=== PATIENT | female | born 1950 | race Caucasian/White ===

== ENCOUNTER → 2017-09-06 07:55 | Outpatient (CLI) | payer OTHER, SELFPAY ==
--- NOTE | 2017-09-06 | DI.US.S_ITS ---
PROCEDURE: US ABDOMEN COMPLETE INDICATIONS: EPIGASTRIC PAIN TECHNIQUE: Real-time scanning was performed of the abdominal and retroperitoneal organs, with image documentation. COMPARISON: None. FINDINGS: Liver: Liver is normal in size and homogeneous in echotexture. Gallbladder: No gallstones identified. Normal gallbladder wall. No pericholecystic fluid. Negative sonographic Bonilla sign. Biliary ducts: Intrahepatic bile ducts are non-dilated. Extrahepatic bile duct caliber measures 5.0 mm. Normal is 6-7 mm or less in diameter, or 10 mm or less post-cholecystectomy. Pancreas: Visualized portions of the pancreas are sonographically normal. Spleen: Spleen is normal in size and homogeneous in echotexture. Kidneys: Kidneys are normal in size and echotexture. Right kidney measures 9.6 cm long; left kidney measures 9.5 cm long. No hydronephrosis or nephrolithiasis. No solid masses. Aorta: Visualized aorta is normal in caliber at less than 3 cm. Iliacs: Proximal common iliac arteries are normal in caliber at less than 2.5 cm. IVC: Intrahepatic inferior vena cava is patent. Miscellaneous: No free abdominal fluid. IMPRESSION: No source for mid epigastric pain identified. Dictated by: Gutierrez GREGORY Interpreted: Vicky Sin MD on 09/06/2017 at 12:42 Approved by: Vicky Sin M.D. on 09/06/2017 at 15:05
== END ==
PROVIDERS: Family Provider Nurse Practitioner Family; PCP Nurse Practitioner Family; Visit Provider Nurse Practitioner Family
DX: R10.13 Epigastric pain (principal)
CPT/HCPCS: 76700

== ENCOUNTER 2018-03-30 12:22 | Day surgery (SDC) | payer OTHER, SELFPAY ==
[2018-03-30] VITALS (7 sets, daily range): BP systolic 101–114; BP diastolic 51–75; PULSE 61–91; RESP 10–16; TEMP 36.1–36.4; O2SAT 94–97; BMI 18.3
--- NOTE | 2018-03-30 | PATH_ITS ---
[facility] Accession Number: [id number] . 01 Material submitted: . LEFT COLON POLYP AT 40CM . 02 Diagnosis: Left Colon, Polyp at 40 cm, Biopsy: Sessile serrated adenoma. V/03/31/2018 . 02 Electronically signed: . Tracey Gonsalves MD, Pathologist NPI- [id number] . 01 Gross description: . Received in one formalin-filled container, labeled with the patient's name and labeled left colon polyp at 40 cm, are two 0.2-0.5 cm portions of tissue, entirely submitted in one cassette. ([id number]) /FRR . 02 Pathologist provided ICD-10: D12.6 . 02 CPT . 052173 Performed at: 01 [facility] [address] [id number] MD Isidro Riley MD Phone: [phone] Performed at: 02 [facility] [place] [address] [place] [id number] MD Tracey Gonsalves MD Phone: [phone]
[2018-03-30] MEDS: SODIUM CHLORIDE 0.9% 1,000 ML 200 ML IV (13:11)
--- NOTE | 2018-03-30 13:54 | PM.HP.1 ---
History of Present Illness Date Patient Seen: 03/30/18 Time Patient Seen: 13:54 Chief complaint: [id number] SCREENING COLONOSCOPY Narrative: 68-year-old female who presents for colorectal screening. Last examination was 10 years ago. She reports the study was normal at that time. She has no new gastrointestinal symptoms today. No abdominal pain or change in bowel habits. No blood per rectum. Patient History Medical History Insomnia (Acute) Surgical History History of colonoscopy (Acute) Social History household members: spouse Family & Social History Social History: household members spouse Meds Home Medications Medication Instructions Recorded Confirmed Type trazodone 50 mg PO HS PRN 03/30/18 History Allergies Allergy/AdvReac Type Severity Reaction Status Date / Time No Known Drug Allergies Allergy Verified 03/30/18 12:51 Review of Systems Review of Systems All systems reviewed & are unremarkable except as noted in HPI and below Exam Vital Signs (past 8 hours): - 03/30/18 13:04 Temperature 97.6 F Pulse Rate 91 H Respiratory Rate 15 Blood Pressure 108/75 Pulse Oximetry 94 Oxygen Delivery Method Room Air Narrative Exam Narrative: Thin female lying comfortably in bed in no acute distress. Alert oriented x3 Sclera nonicteric Regular rate rhythm Abdomen soft and nondistended Extremities show no clubbing or cyanosis Objective Labs Labs: No laboratory or radiographic studies for review Assessment & Plan Assessment & Plan narrative: 68-year-old female requiring colorectal screening. Her last examination was 10 years ago. Colonoscopy is currently recommended. Technical details of the procedure were discussed. Risks, benefits, alternatives were explained. Risks including but not limited to sedation, aspiration, bleeding, pain, missed lesion, incomplete examination, need for further radiographic studies, colonic perforation, need for major abdominal surgery, and all attendant risks of major surgery were discussed in detail. Consent was placed on the chart after all of her questions were answered to her satisfaction, and she voiced understanding. We will proceed as above.
--- NOTE | 2018-03-30 13:59 | PM.PREOP ---
Pre-operative Note Interval Note History & Physical reviewed/Exam performed by Physician: Yes Changes to H&P: No H&P completed within 30 days and has changed as indicated here:: Patient seen and examined today. History and physical examination placed on the chart. Obviously, no changes in the last 15 min. We will proceed with colonoscopy today as planned. ASA Class (for procedural sedation): I
[2018-03-30] MEDS: ONDANSETRON 4 MG/2 ML INJ IV (14:32)
[2018-03-30] MEDS: fentaNYL 250 MCG/5 ML INJ IV (14:33)
[2018-03-30] MEDS: MIDAZOLAM 5 MG/5 ML VIAL IV (14:33)
--- NOTE | 2018-03-30 14:41 | PM.OP.ENDO ---
Operative Date/Time/Diagnoses Date of procedure: 03/30/18 Time of procedure: 14:41 Pre-op diagnosis: Colorectal screening Post-op diagnosis: other (Colon polyp) Procedure & Clinicians Study performed: 1. Sedation per surgeon 2. Colonoscopy with cold forceps polypectomy Same procedure as scheduled: Yes Indications: 68-year-old female who presents for colorectal screening. Last examination was 10 years ago. She is recommended undergo colonoscopy once again. Surgeon: Zac Feldman Procedure Notes SCOAP/Timeout: Yes Procedure in detail: After obtaining informed consent, the patient was brought to the GI suite and placed in the left lateral decubitus position on the examination table. After placement of appropriate monitors, the patient was given incremental doses of Versed and Fentanyl until an appropriate level of sedation was achieved. A time out was held per SCOAP protocol. A digital rectal examination was performed and did not reveal any masses or obstructing lesions. The colonoscope was gently passed into the patient's anus and the entire colon navigated to the level of the cecum with some difficulty. Her colon was quite tortuous and redundant and required multiple repositioning maneuvers as well as abdominal pressure and the endoscopic stiffening device in order to achieve the cecum. Once in the cecum, the scope was withdrawn being sure to go before and beyond all mucosal folds and prominences and get an excellent examination. The findings are noted above. At the level of the rectal vault, the scope was retroflexed and the internal anal canal was examined. The scope was straightened and air aspirated from the colon. The instrument was removed from the patient's body and the procedure was concluded. The patient was allowed to awaken from sedation without difficulty and taken to the post-anesthesia care unit in good condition. Scope withdrawal time: 8:55 min Sedation minutes: 39 Findings: polyp and other findings (Otherwise normal colon and rectum) Specimen(s): other (Left colon polyp at 40 cm) Complications: none Recommendations: Colonscopy in 5 years, High fiber diet and Will call with biopsy results Plan for aftercare: 1. Discharge home Follow up: as needed Disposition: PACU
== END 2018-03-30 15:46 | disposition home or self-care (01) ==
PROVIDERS: PCP Nurse Practitioner Family; Visit Provider Surgery
PROC: 0DJD8ZZ Inspection of Lower Intestinal Tract, Via Natural or Artificial Opening Endoscopic (ICD-10-PCS; CPT 45378; principal; 2018-03-30 14:00)
DX: Z12.11 Encounter for screening for malignant neoplasm of colon (principal); D12.6 Benign neoplasm of colon, unspecified
CPT/HCPCS: 45380; 99152; 99153; J2250; J2405; J3010

== ENCOUNTER → 2018-04-05 07:53 | Outpatient (CLI) | payer OTHER, SELFPAY ==
--- NOTE | 2018-04-05 | DI.MG.S_ITS ---
BILATERAL DIGITAL SCREENING MAMMOGRAM 3D/2D WITH CAD: 04/05/2018 CLINICAL: Routine screening. Comparison is made to exams dated: 05/03/2016 mammogram, 04/23/2015 mammogram, and 03/28/2013 mammogram - [facility]. The tissue of both breasts is predominantly fatty. Current study was also evaluated with a Computer Aided Detection (CAD) system. No significant masses, calcifications, or other findings are seen in either breast. There has been no significant interval change. IMPRESSION: NEGATIVE There is no mammographic evidence of malignancy. A 1 year screening mammogram is recommended. This exam was interpreted at Station ID: [id number]. NOTE: For mammograms, a report in lay terms will be sent to the patient. Approximately 15% of breast malignancies will not be visualized mammographically. In the management of a palpable breast mass, a negative mammogram must not discourage biopsy of a clinically suspicious lesion. Electronically Signed By: Katy lyons/gilmar:04/05/2018 09:00:38 letter sent: Normal Exam ACR BI-RADS Category 1: Negative 3341F
--- NOTE | 2018-04-05 | DI.RAD.S_ITS ---
PROCEDURE: XR LUMBAR SPINE 2-3V INDICATIONS: BACK PAIN TECHNIQUE: 3 views of the lumbar spine were acquired. COMPARISON: None. FINDINGS: Bones: 5 [id number] vertebrae are present. There is abnormal bony alignment, with mild grade 1 anterolisthesis of L5 on S1 associated with presence of moderately severe facet osteoarthritis at this level and mild disc height reduction. No vertebral body compression fractures. No suspicious bony lesions. Soft tissues: Overlying bowel gas pattern is normal. No suspicious soft tissue calcifications. IMPRESSION: Mild grade 1 anterolisthesis of L5 on S1 associated with mild degenerative disc disease at this level and ligamentous laxity secondary to moderately severe facet osteoarthritis at L5-S1. It may be warranted to obtain oblique views to determine whether pars interarticularis defects are present associated with this current set of findings. Dictated by: Piotr Garrido M.D. on 04/05/2018 at 10:00 Approved by: Piotr Garrido M.D. on 04/05/2018 at 10:01
== END ==
PROVIDERS: PCP Nurse Practitioner Family; Visit Provider Nurse Practitioner Family
DX: Z12.31 Encounter for screening mammogram for malignant neoplasm of breast (principal); M54.5 Low back pain; M81.0 Age-related osteoporosis without current pathological fracture; M47.817 Spondylosis without myelopathy or radiculopathy, lumbosacral region; M43.17 Spondylolisthesis, lumbosacral region; M51.37 Other intervertebral disc degeneration, lumbosacral region; G89.29 Other chronic pain
CPT/HCPCS: 72100; 77063; 77067

== ENCOUNTER → 2018-08-11 12:48 | Outpatient (CLI) | payer OTHER, SELFPAY | PROVIDERS: PCP Nurse Practitioner Family; Visit Provider Nurse Practitioner Family | DX: M81.0 Age-related osteoporosis without current pathological fracture (principal); Z78.0 Asymptomatic menopausal state | CPT/HCPCS: 77080 ==

== ENCOUNTER → 2020-08-06 13:54 | Outpatient (CLI) | payer MEDICARE, SELFPAY | PROVIDERS: Visit Provider Physician Assistant | DX: N39.0 Urinary tract infection, site not specified (principal) | CPT/HCPCS: 87086 ==

== ENCOUNTER → 2020-10-28 13:50 | Outpatient (CLI) | payer MEDICARE, SELFPAY ==
[2020-10-28 14:22] LABS: COVID19 -Nasal RAPID Negative (Negative)
== END ==
PROVIDERS: PCP Family Medicine; Visit Provider Nurse Practitioner Family
DX: Z20.822 Contact with and (suspected) exposure to COVID-19 (principal)
CPT/HCPCS: 87635

== ENCOUNTER 2020-10-29 12:23 | Day surgery (SDC) | payer MEDICARE, SELFPAY ==
--- NOTE | 2020-10-29 08:02 | PM.PREOP ---
Pre-operative Note COVID-19 COVID-19 status: Negative Interval Note History & Physical reviewed/Exam performed by Physician: Yes Changes to H&P: No
--- NOTE | 2020-10-29 08:03 | PM.OP.1 ---
Operative Date/Time/Diagnoses Date of procedure: 10/29/20 Time of procedure: 13:15 Procedure & Clinicians Procedure: Preoperative diagnoses: 1. Complex Right significantnuclear sclerotic and cortical cataract. 2. Osteoporosis 3. Migraines 4. Mild epiretinal membrane. Postoperative diagnoses: 1. Complex Right Cataract removed by phacoemulsification with placement of posterior chamber intraocular lens and use of capsular dye. Procedure: ComplexPhacoemulsification with posterior chamber intraocular lens implant Surgeon: Yuli Calderon MD Complications: None Specimen: None Implant: DIBOO+26.5 Blood loss: None Anesthesia: Retrobulbar with monitored standby Description of procedure: Patient presents with a complaint of decreased vision due to cataract which is affecting activities of daily living at reading and distance. She lives on [facility] in needs to be independent and wants to see better. The patient wants surgery to improve vision. She understands the extra risk of surgery during the COVID-19 epidemic and wishes to proceed. She has a high hyperopia. She has tested negative for active COVID-19 virus within 72 hours of the procedure. Her epi retinal membrane is not visually significant and is felt best to proceed with cataract only surgery in this eye. The patient was taken to the operating room and given IV sedation. A retrobulbar block consisting of 6 cc of 2% xylocaine without epinephrine mixed half and half with 0.5% Marcaine with 1 cc of hyaluronidase added is placed between the medial and lateral 1/3 of the inferior orbital rim. The eye is manually massaged for 30 sec, prepped using Betadine solution, and draped in the usual sterile fashion. She has a very deep-set eye with prominent brow and positioning was placed to maximize exposure. Temporal approach was made, a 1 mm side-port incision was made 90? from the proposed clear corneal incision position. Phenylephrine 1.5% mixed with 1% xylocaine 0.2 cc was placed into the anterior chamber. The lid speculum was repositioned several times trying to improve exposure. The eye was so deep set the speculum was unable to be placed under both lids fully. An air bubble was placed followed by Visudyne capsular dye to improve visibility. The excess dye and air was then removed with BSS. Endo coat followed by Healon was then placed. A 2.6 mm clear incision with a 2.6 mm blade was placed. A 360 degree capsulorrhexis style capsulotomy was then performed with a cystitome needle on a Healon. Hydrodelineation and hydrodissection were performed. The phacoemulsification unit is introduced, and sculpting notice used to groove the central lens. It is then removed in chopping mode. Epi nucleus is removed with epinuclear mode and irrigation aspiration was used to remove the peripheral cortex. The posterior capsule is polished. The intraocular lens is selected, inspected, power confirmed, and placed in the posterior chamber. Extra viscoelastic had been used throughout the case due the difficult positioning and visibility and this was extensively irrigated. The wound was stromally hydrated and tested for leaks, there was none and it was left sutureless. Vigamox 0.1 cc was placed into the anterior chamber. Kenalog 0.2 cc was placed in the superior subconjunctival space. A drop of antibiotic and was placed and the eye was patched and shielded. The patient was stable and returned to the recovery room in excellent condition. Dictated by: Yuli Calderon MD Copy to: [facility] Same procedure as scheduled: Yes
[2020-10-29] MEDS: PROPARACAINE 0.5% OPHTH SOL 2 DROPS EYE-OP (12:58)
[2020-10-29] MEDS: CATARACT EYE COMPOUND (10 DROPS/SYRINGE) 3 DROPS EYE-OP (13:03)
[2020-10-29 13:05] VITALS: BMI 20.5
[2020-10-29 13:13] VITALS: BP 138/79; PULSE 69; RESP 16; TEMP 36.3; O2SAT 98
--- NOTE | 2020-10-29 14:37 | SUR.OPER ---
Supine on eye stretcher, head on extension cradle and foam donut then secured with tape. Arms tucked at sides with blanket. Pillow under knees.
[2020-10-29] MEDS: ERYTHROMYCIN OPHTH 1 GM OINT 1 APPLIC EYE-LEFT (14:40)
[2020-10-29] MEDS: BALANCED SALT IRRIG SOLN NO.2 500 ML, EPINEPHrine 1 MG IRR (14:41)
[2020-10-29] MEDS: TRYPAN BLUE 0.5 ML SYRINGE INJ (14:41)
[2020-10-29] MEDS: TRIAMCINOLONE 50 MG/5 ML VIAL INJ (14:41)
[2020-10-29] MEDS: LIDOCAINE 2% 4 ML, BUPIVACAINE 0.5% (PF) 4 ML, HYALURONIDASE 150 UNIT INJ (14:42)
[2020-10-29] MEDS: HYALURONATE SODIUM 30 MG-10 MG/ML SYRINGES 1 BOX INTRAOCULA (14:43)
[2020-10-29] MEDS: MOXIFLOXACIN INJ 4 MG/0.8 ML VIAL 0.5 MG EYE-OP (14:43)
[2020-10-29] MEDS: PHENYLEPHRINE/LIDOCAINE VIAL (OR) 0.2 ML EYE-OP (14:46)
[2020-10-29 15:28] VITALS: BP 140/77; PULSE 63; RESP 16; TEMP 36.4; O2SAT 97
--- NOTE | 2020-10-29 16:16 | SUR.PHASEII ---
Pt left when ready and left in stable condition.
== END 2020-10-29 15:50 | disposition home or self-care (01) ==
LOC: OR 12:24
PROVIDERS: PCP Family Medicine; Referring Provider Ophthalmology; Visit Provider Ophthalmology
PROC: (CPT 66984; principal; 2020-10-29 13:15)
DX: H25.811 Combined forms of age-related cataract, right eye (principal); H35.373 Puckering of macula, bilateral; M81.0 Age-related osteoporosis without current pathological fracture
CPT/HCPCS: 66984; J0171; J2704; J3301; J3470

== ENCOUNTER → 2021-03-30 10:56 | Outpatient (CLI) | payer MEDICARE, SELFPAY ==
[2021-03-30 12:09] LABS: COVID19 -Nasal RAPID Negative (Negative)
== END ==
PROVIDERS: PCP Family Medicine; Visit Provider Family Medicine Sleep Medicine
DX: Z20.822 Contact with and (suspected) exposure to COVID-19 (principal)
CPT/HCPCS: 87635; C9803

== ENCOUNTER 2021-03-31 10:52 | Day surgery (SDC) | payer MEDICARE, SELFPAY ==
[2021-03-31] MEDS: PROPARACAINE 0.5% OPHTH SOL 2 DROPS EYE-OP (11:05)
[2021-03-31] MEDS: CATARACT EYE COMPOUND (10 DROPS/SYRINGE) 3 DROPS EYE-OP (11:05)
[2021-03-31 11:17] VITALS: BP 119/73; PULSE 99; RESP 16; TEMP 36.6; O2SAT 98; BMI 20.5
[2021-03-31] MEDS: LACTATED RINGERS 1,000 ML 84 ML IV (11:46)
--- NOTE | 2021-03-31 11:59 | P.OP.PRE_ITS ---
Pre-operative Note Interval Note History & Physical reviewed/Exam performed by Physician: Yes Changes to H&P: No Addendum Addendum Note: There are no non surgical alternatives to the patient's condition. Deteriora tion of the patient's condition is expected. Delay may result in more complex future surgery
--- NOTE | 2021-03-31 12:00 | PM.OP.1 ---
Operative Date/Time/Diagnoses Pre-op diagnosis: Nuclear Cataract Left eye Post-op diagnosis: same Procedure & Clinicians Same procedure as scheduled: Yes Surgeon: Neel Shepherd Anesthesia Type: MAC +/- and Sedation Operative Notes Procedure in detail: Patient brought to the operating suite. Tetracaine drops placed in the left eye. Patient was prepped and draped in sterile manner. Wire lid speculum was placed in the eye. Betadine drops were placed on the eye. This was irrigated. Lidocaine jelly was placed on the eye. There was zonnular dehiscence at 12:00 A paracentesis port was created with a side-port blade. 0.1 mL 1% preservative free lidocaine was injected into the anterior chamber. The anterior chamber was deepened with viscoelastic. 2.6 mm keratome was used to create a temporal clear corneal incision. Cystotome and Utrata forceps were used to create continuous tear capsulorrhexis. Balanced salt solution was used to hydro dissect the nucleus. The phacoemulsification handpiece was inserted and the nucleus was removed using the stop and chop technique. The chamber was quite shallow. The irrigation aspiration handpiece was inserted and the remaining cortex was removed. Anterior chamber was deepened with viscoelastic. An Blas DIB00 intraocular lens with a power of 27.0 was injected into the capsular bag. Irrigation aspiration handpiece was inserted and the remaining viscoelastic was removed. Some vitreous presented at the site of zonnular dehiscence. It it did not go to the incisions. Incision was hydrated with balanced salt solution and found to be leak free with pressure with Weck-Court sponges. 0.1 mL Vigamox injected anterior chamber. 0.3 mL Kenalog 10 mg was injected subconjunctivally. Lid speculum was removed. The patient left the operating room in excellent condition. Complications: none Post-operative Condition: stable Disposition: same day surgery
[2021-03-31] MEDS: HYALURONATE SODIUM 30 MG-10 MG/ML SYRINGES 1 BOX INTRAOCULA (12:21)
[2021-03-31] MEDS: TRIAMCINOLONE 50 MG/5 ML VIAL INJ (12:22)
[2021-03-31] MEDS: LIDOCAINE 2% (GLYDO) 6 ML GEL TOP (12:22)
[2021-03-31] MEDS: PHENYLEPHRINE/LIDOCAINE VIAL (OR) 0.2 ML EYE-OP (12:22)
[2021-03-31] MEDS: TETRACAINE 0.5% OPHTH DROPS 4 ML 2 DROPS EYE-OP (12:22)
[2021-03-31] MEDS: BALANCED SALT IRRIG SOLN NO.2 500 ML, EPINEPHrine 1 MG IRR (12:22)
[2021-03-31] MEDS: MOXIFLOXACIN INJ 4 MG/0.8 ML VIAL 0.5 MG EYE-OP (12:22)
[2021-03-31] MEDS: TIMOLOL 0.5% OPHTH 2 DROPS EYE-LEFT (12:35)
[2021-03-31 12:40] VITALS: BP 102/61; PULSE 64; RESP 16; TEMP 36.8; O2SAT 96
== END 2021-03-31 13:00 | disposition home or self-care (01) ==
LOC: OR 10:53
PROVIDERS: PCP Family Medicine; Referring Provider Ophthalmology; Visit Provider Ophthalmology
PROC: (CPT 66984; principal; 2021-03-31 12:45)
DX: H25.12 Age-related nuclear cataract, left eye (principal)
CPT/HCPCS: 66984; J0171; J2250; J3010; J3301

== ENCOUNTER → 2021-05-07 07:26 | Outpatient (CLI) | payer MEDICARE, SELFPAY ==
--- NOTE | 2021-05-07 | DI.MG.S_ITS ---
BILATERAL DIGITAL SCREENING MAMMOGRAM 3D/2D WITH CAD: 05/07/2021 CLINICAL: Routine screening. Comparison is made to exams dated: 04/05/2018 mammogram, 05/03/2016 mammogram, 04/23/2015 mammogram, and 04/24/2013 mammogram - [facility]. There are scattered fibroglandular elements in both breasts. Current study was also evaluated with a Computer Aided Detection (CAD) system. No significant masses, calcifications, or other findings are seen in either breast. There has been no significant interval change. IMPRESSION: NEGATIVE There is no mammographic evidence of malignancy. A 1 year screening mammogram is recommended. This exam was interpreted at Station ID: [id number]. NOTE: For mammograms, a report in lay terms will be sent to the patient. Approximately 15% of breast malignancies will not be visualized mammographically. In the management of a palpable breast mass, a negative mammogram must not discourage biopsy of a clinically suspicious lesion. Electronically Signed By: Charlie stevenson/gilmar:05/07/2021 09:28:21 letter sent: Normal Exam ACR BI-RADS Category 1: Negative 3341F
== END ==
PROVIDERS: PCP Family Medicine; Referring Provider Family Medicine; Visit Provider Family Medicine
DX: Z12.31 Encounter for screening mammogram for malignant neoplasm of breast (principal)
CPT/HCPCS: 77063; 77067

== ENCOUNTER → 2023-04-05 09:12 | Outpatient (CLI) | payer MEDICARE, SELFPAY ==
--- NOTE | 2023-04-05 09:14 | DI.MG.S_ITS ---
BILATERAL DIGITAL SCREENING MAMMOGRAM 3D/2D WITH CAD: 04/05/2023 CLINICAL: Routine screening. Comparison is made to exams dated: 05/07/2021 mammogram, 04/05/2018 mammogram, and 05/03/2016 mammogram - [facility]. There are scattered areas of fibroglandular density in both breasts (category b / 25%-50% glandular tissue). Current study was also evaluated with a Computer Aided Detection (CAD) system. No significant masses, calcifications, or other findings are seen in either breast. There has been no significant interval change. IMPRESSION: NEGATIVE There is no mammographic evidence of malignancy. A 1 year screening mammogram is recommended. Based on the Tyrer Cuzick model (a risk assessment model) the patient's lifetime risk is 3.6% and her 10 year risk is 3.0%. According to the ACR, ACS, and NCCN guidelines, an annual breast MRI exam along with mammogram is recommended if the patient's lifetime risk is 20% or greater. This exam was interpreted at Station ID: [id number]. NOTE: For mammograms, a report in lay terms will be sent to the patient. Approximately 15% of breast malignancies will not be visualized mammographically. In the management of a palpable breast mass, a negative mammogram must not discourage biopsy of a clinically suspicious lesion. Electronically Signed By: Chantelle nunez/gilmar:04/05/2023 16:32:15 letter sent: Normal Exam ACR BI-RADS Category 1: Negative 3341F
--- NOTE | 2023-04-05 09:14 | DI.RAD.S_ITS ---
Bone Density Report Name: YASMEEN MAURO Age: 73 Sex: Female Ethnicity: White Date of : 1950 Indication: postmenopausal osteoporosis; Referring Provider: SACHI SANCHEZ Study: Bone densitometry was performed. Exam Date: April 05, 2023 Accession number: [id number] Bone Density: Region BMD T-score Z-score Classification AP Spine(L1-L4) 0.508 -4.9 -2.6 Osteoporosis Femoral Neck (Left) 0.418 -3.9 -1.9 Osteoporosis Total Hip (Left) 0.531 -3.4 -1.7 Osteoporosis Femoral Neck (Right) 0.416 -3.9 -1.9 Osteoporosis Total Hip (Right) 0.528 -3.4 -1.7 Osteoporosis Total Hip Mean 0.529 -3.4 -1.7 Osteoporosis World Health Organization criteria for BMD impression classify patients as: Normal (T-score at or above -1.0), Osteopenia (T-score between -1.0 and -2.5), or Osteoporosis (T-score at or below -2.5). 10-year Fracture Risk: FRAX not reported because: Some T-score for Spine Total or Hip Total or Femoral Neck at or below -2.5 Previous Exams: -- Region Exam Age BMD T-score BMD Change BMD Change Date g/cm2 vs Baseline vs Previous -- AP Spine (L1-L4) 04/05/2023 73 0.508 -4.9 -0.094 (-15.5%)# -0.020 (-3.9%)# 08/11/2018 68 0.529 -4.7 -0.073 (-12.2%)* -0.024 (-4.3%)* 05/03/2016 66 0.553 -4.5 -0.049 (-8.2%)* -0.049 (-8.2%)* 03/28/2013 63 0.602 -4.0 Total Hip(Left) 04/05/2023 73 0.531 -3.4 -0.070 (-11.7%)# 0.015 (2.9%)# 08/11/2018 68 0.516 -3.5 -0.085 (-14.2%)* -0.025 (-4.6%) 05/03/2016 66 0.541 -3.3 -0.060 (-10.0%)* -0.060 (-10.0%)* 03/28/2013 63 0.601 -2.8 Total Hip(Right) 04/05/2023 73 0.528 -3.4 -0.050 (-8.6%)# 0.040 (8.2%)# 08/11/2018 68 0.488 -3.7 -0.090 (-15.6%)* -0.076 (-13.5%)* 05/03/2016 66 0.564 -3.1 -0.014 (-2.4%) -0.014 (-2.4%) 03/28/2013 63 0.578 -3.0 -- *Denotes significance at 95% confidence level, LSC for AP Spine = 0.022 g/cm2, LSC for Total Hip = 0.027 g/cm2 # Denotes dissimilar scan types or analysis methods Impression: The patient has osteoporosis, based on the Total Spine T-score. No significant bone loss was observed. Discussion: HIGH RISK OF FRACTURE. BONE DENSITY IS UNDESIRABLY LOW AT ONE OR MORE SKELETAL SITES, CONSISTENT WITH OSTEOPOROSIS. ALSO, BONE DENSITY IS LOWER THAN EXPECTED FOR AGE AND SEX AT ONE OR MORE SKELETAL SITES; RECOMMEND A DILIGENT SEARCH FOR SECONDARY CAUSES OF BONE LOSS. This patient's lowest T-score meets the World Health Organization's (WHO) criteria for osteoporosis at one or more sites (T-score -2.5 or below). In untreated patients, the risk of osteoporotic fracture increases approximately two-fold for each 1.0 SD decrease in T-score. Low bone density is not the only risk factor for fracture; also consider factors such as patient's age, frailty or poor health, risk of falling, risk of injury, previous osteoporotic fracture, family history of osteoporosis, cigarette smoking, low body weight, etc. Not everyone with low bone mineral density has osteoporosis; osteomalacia and other metabolic bone disorders should also be considered. Patients who have osteoporosis should be evaluated for specific diseases and conditions (secondary causes) that may cause or contribute to bone loss. The [place] Association of Clinical Endocrinologists (AACE) and National Osteoporosis Foundation (NOF) recommend pharmacologic intervention for all postmenopausal women whose T-score is in this range. Also, this patient's bone mineral density is below the range considered normal for healthy age-, sex-, and race-matched controls at least one site (Z-score -2.0 or below). This warrants careful evaluation for diseases and conditions that may contribute to accelerated bone loss. The patient should follow a healthful lifestyle (good nutrition with adequate calcium and vitamin D, and appropriate weight-bearing exercise). Follow-Up: Consider a repeat BMD and Vertebral Fracture Assessment (VFA) exam in 2 years or sooner if medically necessary, to reassess this patient's status. Reported by: MARLYS REICH M.D. on 04/05/2023 9:57:00 AM.
== END ==
LOC: MAMMO 09:13
PROVIDERS: PCP Family Medicine; Referring Provider Family Medicine; Visit Provider Family Medicine
DX: Z12.31 Encounter for screening mammogram for malignant neoplasm of breast (principal); Z78.0 Asymptomatic menopausal state; R92.323 Mammographic fibroglandular density, bilateral breasts; Z13.820 Encounter for screening for osteoporosis; M81.0 Age-related osteoporosis without current pathological fracture
CPT/HCPCS: 77063; 77067; 77080

== ENCOUNTER → 2023-12-30 08:38 | Outpatient (CLI) | payer MEDICARE, SELFPAY ==
--- NOTE | 2023-12-30 08:40 | DI.CT.S_ITS ---
PROCEDURE: CT SINUS SCREEN WO CON INDICATIONS: EDOPHAGEAL DYSPHAGIA,GLOBUS SENSATION/PANSINUSITIS TECHNIQUE: Noncontrast 3.0 mm axial images acquired from the frontal sinuses to the mid-sella, with coronal and sagittal reformats. For radiation dose reduction, the following was used: automated exposure control, adjustment of mA and/or kV according to patient size. COMPARISON: None. FINDINGS: Image quality: Excellent. Maxillary Sinuses: No bony remodeling or destruction. Sinuses are clear. Ethmoid Air Cells: No bony remodeling or destruction. Sinuses are clear. Sphenoid Sinuses: No bony remodeling or destruction. Sinuses are clear. Incidental pneumatization of the left optic strut and anterior clinoid. Optic nerve is appropriately covered Frontal Sinuses: No bony remodeling or destruction. Sinuses are clear. Ostiomeatal Complexes: Ostiomeatal complexes are patent. No Remington cells. Miscellaneous: Visualized intra-orbital contents are normal. Paradoxical curvature of the right middle turbinate. Both middle turbinates show elements of pneumatization. Leftward nasal septal deviation IMPRESSION: No evidence of active mucosal sinus disease or osseous remodeling. Incidental variation includes nasal septal deviation, paradoxical curvature of the right middle turbinate, pneumatization of the left optic strut. Approved by: Hiren Dallas M.D. on 12/30/2023 at 17:07
--- NOTE | 2023-12-30 08:40 | DI.RAD.S_ITS ---
PROCEDURE: FL BARIUM SWALLOW INDICATIONS: EDOPHAGEAL DYSPHAGIA,GLOBUS SENSATION/PANSINUSITIS COMPARISON: None. FINDINGS: Function: No radiographic evidence for penetration or aspiration. There is significant delayed esophageal emptying with a possible stricture of the distal esophagus, measuring 3mm, where the barium tablet was stuck for longer than 30 seconds. There is no elicited gastro esophageal reflux. There is evidence of a small reducible hiatal hernia present. The 13mm barium tablet passed, but with delay in the distal esophagus for longer than 30 seconds. Morphology: Air-contrast images demonstrate normal mucosal morphology. Single contrast views show a possible esophageal stricture. With no evidence of extrinsic mass effects, or diverticula. Limited images of the stomach demonstrate normal appearance. IMPRESSION: 1. Tightening of the EJ measuring 3mm at tightest point, where 13mm barium tablet passed with significant delay. 2. Small reducible hiatal hernia. 3. Recommend EGD follow-up. Dictated by: Gutierrez GREGORY Interpreted: Alexis Cedillo MD on 12/30/2023 at 11:28 Transcribed by: NED on 12/30/2023 at 11:41 Approved by: Alexis Cedillo M.D. on 12/30/2023 at 20:23
== END ==
LOC: RAD 08:39
PROVIDERS: PCP Family Medicine; Referring Provider Otolaryngology; Visit Provider Otolaryngology
DX: R09.A2 Foreign body sensation, throat (principal); J32.4 Chronic pansinusitis; R13.19 Other dysphagia; R51.9 Headache, unspecified; J34.89 Other specified disorders of nose and nasal sinuses; J34.2 Deviated nasal septum; K44.9 Diaphragmatic hernia without obstruction or gangrene
CPT/HCPCS: 70486; 74220